=== PATIENT | female | born 1930 | race Caucasian/White ===

== ENCOUNTER 2020-07-28 13:49 | Emergency (ER) | payer OTHER ==
--- NOTE | 2020-07-28 14:39 | RAD REPORT ---
EXAM DESCRIPTION: CT - Head Brain Wo Cont - 07/28/2020 2:27 pm CLINICAL HISTORY: HEADACHE COMPARISON: No comparisons TECHNIQUE: Axial 5 mm thick images of the head were obtained without IV contrast. All CT scans are performed using dose optimization technique as appropriate and may include automated exposure control or mA/KV adjustment according to patient size. FINDINGS: No intracranial hemorrhage, mass, edema or shift of mid-line structures. No acute infarcti on changes seen. No abnormal extra-axial fluid collections. Atrophy changes are present [id number] ate in degree. Ventricles are in proportion. Moderate severity chronic ischemic changes are identifie d. Arterial and physiologic calcifications are present. Mastoid air cells and visualized portions of the paranasal sinuses are clear. No acute bony findings. IMPRESSION: Negative non-contrast CT head examination for acute finding.
[2020-07-28] MEDS ORDERED: METOCLOPRAMIDE 10 MG/2mL INJ ONE (19:43)
[2020-07-28] MEDS ORDERED: DIPHENHYDRAMINE 50 MG/ML VIAL ONE (19:44)
[2020-07-28] MEDS ORDERED: dexAMETHasone 10 MG/ML VIAL ONE (19:44)
--- NOTE | 2020-07-28 20:32 | EDPHYS ---
Physician Documentation [facility] Name: Annabelle Johnson Age: 89 yrs Sex: Female : 1930 Arrival Date: 07/28/2020 Time: 13:55 Bed 17 Private MD: Asher Neves B ED Physician Deandre Barnes HPI: 07/28 19:03 This 89 yrs old Female presents to ER via Ambulatory with complaints of pm1 Headache. 19:03 The patient complains of pain to the forehead, left occipital area and right occipital pm1 area. The patient describes the headache as aching. Onset: The symptoms/episode began/occurred today, at 11:45. Associated signs and symptoms: Pertinent positives: Photophobia Pertinent negatives: fever, nausea, neck stiffness, vomiting. Severity of symptoms: in the emergency department the pain a " 8" out of "10". Headache History: The patient has had previous headaches and this one is similar to previous episodes. The symptoms are alleviated by Darkened room, quiet, the symptoms are aggravated by lights, noise. The patient has experienced similar episodes in the past, a few times. Historical: - Allergies: 14:00 No Known Allergies; sv - PMHx: 14:00 None; sv - PSHx: 14:00 None; sv - Immunization history:: Adult Immunizations up to date. - Social history:: Smoking status: Patient denies any tobacco usage or history of. ROS: 19:03 Constitutional: Negative for fever, chills, and weight loss, Eyes: Negative for injury, pm1 pain, redness, and discharge, ENT: Negative for injury, pain, and discharge, Neck: Negative for injury, pain, and swelling, Cardiovascular: Negative for chest pain, palpitations, and edema, Respiratory: Negative for shortness of breath, cough, wheezing, and pleuritic chest pain, Abdomen/GI: Negative for abdominal pain, nausea, vomiting, diarrhea, and constipation. 19:03 Neuro: Positive for headache, Negative for numbness, tingling, weakness. Exam: 19:03 Constitutional: This is a well developed, well nourished patient who is awake, alert, pm1 and in no acute distress. 19:03 Skin: Warm, dry with normal turgor. Normal color with no rashes, no lesions, and no evidence of cellulitis. MS/ Extremity: Pulses equal, no cyanosis. Neurovascular intact. Full, normal range of motion. 19:03 Head/face: Noted is no obvious of injury or deformity except headache improved with frontal region palpation and massage, and headache worsened with palpation and massage to occipital region. 19:03 Eyes: Exam is negative for acute changes, Periorbital structures: appear normal, Pupils: no acute changes, Extraocular movements: no acute changes, Conjunctiva: normal, Lids and lashes: appear normal. 19:03 Cardiovascular: Exam negative for acute changes, Rate: normal, Rhythm: regular, Pulses: no pulse deficits are appreciated. 19:03 Respiratory: Exam negative for acute changes, respiratory distress, shortness of breath. 19:03 Neuro: Exam negative for acute changes, Orientation: is normal, Mentation: is normal, Motor: is normal, moves all fours. Vital Signs: 14:00 BP 175 / 49; Pulse 89; Resp 16; Temp 98.1(TE); Pulse Ox 99% on R/A; Weight 57.15 kg; sv Height 5 ft. 1 in. (154.94 cm); Pain 7/10; 19:00 BP 149 / 52; Pulse 53; Resp 16; Pulse Ox 99% ; sf 19:35 BP 151 / 56; Pulse 55; Resp 16; Pulse Ox 97% ; sf 20:00 BP 128 / 54; Pulse 60; Resp 16; Pulse Ox 99% ; sf 20:30 BP 136 / 59; Pulse 68; Resp 16; Pulse Ox 96% ; sf 14:00 Body Mass Index 23.81 (57.15 kg, 154.94 cm) sv MDM: 18:55 Patient medically screened. pm1 19:07 Data reviewed: vital signs. pm1 20:30 Counseling: I had a detailed discussion with the patient and/or guardian regarding: the pm1 historical points, exam findings, and any diagnostic results supporting the discharge/admit diagnosis, radiology results, the need for outpatient follow up, a neurologist, to return to the emergency department if symptoms worsen or persist or if there are any questions or concerns that arise at home. 20:32 ED course: Patient reports mild improvement in headache /10, however she feels ready pm1 to go home. Offered to give her additional pain medication before she leaves and she agreed. 07/28 14:13 Order name: CT Head Brain wo Cont; Complete Time: 18:55 ss 07/28 19:01 Order name: IV Saline Lock; Complete Time: 19:24 pm1 Administered Medications: 19:30 Drug: Benadryl 12.5 mg Route: IVP; Site: right antecubital; sf 20:35 Follow up: Response: No adverse reaction sf 19:31 Drug: Decadron - Dexamethasone 10 mg Route: IVP; Site: right antecubital; sf 20:35 Follow up: Response: No adverse reaction; Pain is decreased sf 19:34 Drug: Reglan 10 mg Route: IVP; Site: right antecubital; sf 20:35 Follow up: Response: No adverse reaction sf 21:04 Drug: TORadol - Ketorolac 15 mg Route: IVP; Site: right antecubital; sf 21:16 Follow up: Response: No adverse reaction; Pain is decreased sf Disposition: 07/28/20 20:31 Discharged to Home. Impression: Headache. - Condition is Stable. - Discharge Instructions: General Headache Without Cause. - Medication Reconciliation Form, Thank You Letter, Antibiotic Education, Prescription Opioid Use form. - Follow up: Emergency Department; When: As needed; Reason: Worsening of condition. Follow up: Gavino Gomez MD; When: 2 - 3 days; Reason: Recheck today's complaints, Continuance of care, Re-evaluation by your physician. - Problem is new. - Symptoms have improved. Addendum: 08/05/2020 18:55 Co-signature as Attending Physician, Deandre Barnes MD. r n Signatures: Dispatcher [employer] Cindy Zaldivar RN RN sv Nieto, Roman, MD MD rn Marinas, Patrick, NP GLUE DRIER OPERATOR pm1 Thien Llamas RN RN sf Corrections: (The following items were deleted from the chart) 07/28 21:20 20:31 07/28/2020 20:31 Discharged to Home. Impression: Headache. Condition is Stable. sf Discharge Instructions: General Headache Without Cause. Forms are Medication Reconciliation Form, Thank You Letter, Antibiotic Education, Prescription Opioid Use. Follow up: Emergency Department; When: As needed; Reason: Worsening of condition. Follow up: Gavino Gomez; When: 2 - 3 days; Reason: Recheck today's complaints, Continuance of care, Re-evaluation by your physician. Problem is new. Symptoms have improved. pm1
--- NOTE | 2020-07-28 20:32 | ER ---
Nurse's Notes [facility] Name: Annabelle Johnson Age: 89 yrs Sex: Female : 1930 Arrival Date: 07/28/2020 Time: 13:55 Bed 17 Private MD: Asher Neves B Diagnosis: Headache Presentation: 07/28 13:58 Chief complaint: Patient states: occipital and frontal headache photophobia started sv about an hour ago. Reports previous GOODMAN but never this bad. Denies dizziness. Coronavirus screen: Client denies travel out of the [place] in the last 14 days. At this time, the client does not indicate any symptoms associated with coronavirus-19. Ebola Screen: No symptoms or risks identified at this time. Risk Assessment: Do you want to hurt yourself or someone else? Patient reports no desire to harm self or others. Onset of symptoms was July 28, 2020. 13:58 Method Of Arrival: Ambulatory sv 13:58 Acuity: OWEN 3 sv 14:00 Initial Sepsis Screen: Does the patient meet any 2 criteria? No. Patient's initial sv sepsis screen is negative. Does the patient have a suspected source of infection? No. Patient's initial sepsis screen is negative. Triage Assessment: 14:02 Headache History: The patient has had previous headaches and this one is similar to sv previous episodes, and this one is more severe than previous episodes. General: Appears in no apparent distress. uncomfortable, Behavior is calm, cooperative, appropriate for age. Pain: Complains of pain in occipital and frontal head. Neuro: Level of Consciousness is awake, alert, obeys commands, Oriented to person, place, time, situation, Moves all extremities. Full function Gait is steady, Reports photophobia Denies dizziness, paresthesias numbness. 19:20 Pain: Complains of pain in left judaism, left side of forehead and left temporal area sf Pain began suddenly, Also complains of. Historical: - Allergies: 14:00 No Known Allergies; sv - PMHx: 14:00 None; sv - PSHx: 14:00 None; sv - Immunization history:: Adult Immunizations up to date. - Social history:: Smoking status: Patient denies any tobacco usage or history of. Screenin:13 Abuse screen: Denies threats or abuse. Denies injuries from another. Nutritional sf screening: No deficits noted. Tuberculosis screening: No symptoms or risk factors identified. Fall Risk None identified. No fall in past 12 months (0 pts). No secondary diagnosis (0 pts). IV access (20 points). Ambulatory Aid- Crutches/Cane/Walker (15 pts). Gait- Normal/Bed Rest/Wheelchair (0 pts) Mental Status- Oriented to own ability (0 pts). Total Fuentes Fall Scale indicates No Risk (0-24 pts). Assessment: 14:13 Reassessment: Received VO for CT head brain from Dr Barnes. ss 19:20 General: Appears in no apparent distress. comfortable, Behavior is calm, cooperative, sf appropriate for age. Pain: Complains of pain in left eye, left judaism and left temporal area Pain currently is 7 out of 10 on a pain scale. Neuro: Level of Consciousness is awake, alert, Oriented to person, place, time, situation, Appropriate for age Reports headache in left frontal area. Cardiovascular: No deficits noted. Capillary refill < 3 seconds Patient's skin is warm and dry. Respiratory: No deficits noted. Airway is patent Respiratory effort is even, unlabored, Respiratory pattern is regular, symmetrical. Vital Signs: 14:00 BP 175 / 49; Pulse 89; Resp 16; Temp 98.1(TE); Pulse Ox 99% on R/A; Weight 57.15 kg; sv Height 5 ft. 1 in. (154.94 cm); Pain 7/10; 19:00 BP 149 / 52; Pulse 53; Resp 16; Pulse Ox 99% ; sf 19:35 BP 151 / 56; Pulse 55; Resp 16; Pulse Ox 97% ; sf 20:00 BP 128 / 54; Pulse 60; Resp 16; Pulse Ox 99% ; sf 20:30 BP 136 / 59; Pulse 68; Resp 16; Pulse Ox 96% ; sf 14:00 Body Mass Index 23.81 (57.15 kg, 154.94 cm) sv ED Course: 13:55 Patient arrived in ED. mr 13:55 Asher Neves MD is Private Physician. mr 13:58 Arm band placed on. sv 14:00 Triage completed. sv 14:25 CT Head Brain wo Cont In Process Unspecified. EDMS 18:53 Farrukh Gaitan NP is PHCP. pm1 18:53 Deandre Barnes MD is Attending Physician. pm1 19:16 Thien Llamas, AMANDA is Primary Nurse. sf 19:24 Placed in gown. Bed in low position. Call light in reach. Side rails up X2. Pulse ox sf on. NIBP on. 19:24 Inserted saline lock: 20 gauge in right antecubital area, using aseptic technique. sf 20:31 Gavino Gomez MD is Referral Physician. pm1 21:12 IV discontinued, intact, bleeding controlled, No redness/swelling at site. Pressure sf dressing applied. 21:13 No provider procedures requiring assistance completed. sf Administered Medications: 19:30 Drug: Benadryl 12.5 mg Route: IVP; Site: right antecubital; sf 20:35 Follow up: Response: No adverse reaction sf 19:31 Drug: Decadron - Dexamethasone 10 mg Route: IVP; Site: right antecubital; sf 20:35 Follow up: Response: No adverse reaction; Pain is decreased sf 19:34 Drug: Reglan 10 mg Route: IVP; Site: right antecubital; sf 20:35 Follow up: Response: No adverse reaction sf 21:04 Drug: TORadol - Ketorolac 15 mg Route: IVP; Site: right antecubital; sf 21:16 Follow up: Response: No adverse reaction; Pain is decreased sf Outcome: 20:31 Discharge ordered by MD. pm1 21:13 Discharged to home ambulatory. sf 21:13 Condition: stable 21:13 Discharge instructions given to patient, Instructed on discharge instructions, follow up and referral plans. medication usage, Demonstrated understanding of instructions, follow-up care, medications. 21:20 Patient left the ED. sf Signatures: Dispatcher [employer] EDMS Cindy Espinoza RN RN sv Rivera, Mary mr Shahla Rios RN RN ss Farrukh Gaitan, RESIDENTIAL SUBCONTRACTOR RESIDENTIAL SUBCONTRACTOR pm1 Thien Llamas, AMANDA PATEL sf Corrections: (The following items were deleted from the chart) 14:03 14:00 Pulse 89bpm; Resp 16bpm; Pulse Ox 99% RA; Temp 98.1F Temporal; 57.15 kg; Height 5 sv ft. 1 in.; BMI: 23.8; Pain 7/10; sv
[2020-07-28] MEDS ORDERED: KETOROLAC 30 MG/ML INJ ONE (21:17)
[2020-07-28 22:06] VITALS: TEMP 98.1
[2020-07-28 22:11] VITALS: BP 136/59; O2SAT 96
--- OUTSIDE RECORDS SUMMARY | 2020-07-29 23:01 | XMS REPORT | Continuity of Care Document ---
:1930 Author Organization [facility] t Address [address] [place] [address] [place] [id number] Care Team Providers Name Role Phone Unavailable Unavailable Unavailable Problems This patient has no known problems. Allergies, Adverse Reactions, Alerts This patient has no known allergies or adverse reactions. Medications This patient has no known medications. Procedures This patient has no known procedures. Results This patient has no known results.
== END 2020-07-28 21:20 | disposition home or self-care (01) ==
LOC: ER 13:49
DX: R51.9 Headache, unspecified (principal)
CPT/HCPCS: 70450; J2765; J1200; J1100; 96374; 96375; 99284